=== PATIENT | male | born 2000 | race Two or more races ===

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

== ENCOUNTER 2023-05-29 00:29 | Emergency (ER) | payer OTHER ==
[~2023-05-29] VITALS: Ht 195.6 cm; Wt 88.5 kg
[2023-05-29] MEDS ORDERED: GENTAMICIN SULFATE 0.15 MG/DR DROPS 5ML OP STA (01:16)
[2023-05-29] MEDS ORDERED: NAPHAZOLINE HCL/PHENIRAMINE 20 DR/ML DROPS OP STA (01:21)
[2023-05-29] MEDS ORDERED: TOBRAMYCIN 20 DR/ML DROPS 5ML BOTTLE OP STA (01:22)
== END 2023-05-29 01:27 ==
LOC: ER 00:29
DX: H10.31 Unspecified acute conjunctivitis, right eye (principal)